=== PATIENT | female | born 1985 | race Caucasian/White ===

== ENCOUNTER → 2016-07-11 | Outpatient (CLI) | payer OTHER | END | disposition home or self-care (01) | LOC: C.PAPS 11:22 | PROVIDERS: ATTEND Obstetrics & Gynecology | DX: Z01.419 Encounter for gynecological examination (general) (routine) without abnormal findings (principal); O48.1 Prolonged pregnancy ==

== ENCOUNTER → 2016-07-23 | Outpatient (CLI) | payer OTHER ==
--- NOTE | 2016-07-23 14:09 | MAMMOGRAPHY REPORT ---
UNILATERAL RIGHT DIGITAL DIAGNOSTIC MAMMOGRAM TOMOSYNTHESIS WITH CAD AND TARGETED RIGHT ULTRASOUND: 07/23/2016 CLINICAL HISTORY: The patient reports intermittent pain in the right lateral breast since she began breast-feeding. She breast fed for approximately 7 months and quit breast-feeding approximately 1-1 /2 years ago. She denies any palpable lumps. TECHNIQUE: Breast tomosynthesis in addition to standard 2D mammography was performed. Current study was also evaluated with a Computer Aided Detection (CAD) system. Right CC and MLO 2-D and tomosynt hesis images were obtained. COMPARISON: No prior exams were available for comparison. BREAST COMPOSITION: There are scattered areas of fibroglandular density in the right breast. FINDINGS: A triangle marker fabian the site of pain in the right upper outer quadrant. There are no suspicious masses, calcifications, or areas of architectural distortion noted in the right breast m ammographically. Targeted ultrasound was performed of the area of pain pointed out by the patient, involving the righ t lateral breast. No suspicious masses or other suspicious sonographic abnormalities are evident. Incidentally noted in the right breast at 7:00, 3 cm from the nipple, is an anechoic circumscribed 3 x 2 x 3 mm mass, consistent with a benign simple cyst. IMPRESSION: ACR BI-RADS CATEGORY 2: BENIGN, TARGETED ULTRASOUND ACR BI-RADS CATEGORY 2: BENIGN No suspicious mammographic or sonographic abnormality at the site of right breast pain. There is no mammographic or targeted sonographic evidence of malignancy. Recommend clinical follow-up, and rec ommend routine bilateral screening mammograms starting at the age of 40 unless otherwise clinically indicated. The patient has been verbally notified of the results. Approximately 10% of breast cancers are not detected with mammography. A negative mammographic repor t should not delay biopsy if a clinically suggestive mass is present. Nimo Pereira M.D. /:07/23/2016 12:05:16 Clerk Guide: Wallace SCHNEIDER)(Julia), [facility] letter sent: Normal 1/2 BI-RADS Code: ACR BI-RADS Category 2: Benign Ultrasound BI-RADS: ACR BI-RADS Category 2: Benign
== END | disposition home or self-care (01) ==
LOC: C.MAMM 11:37
PROVIDERS: ATTEND Obstetrics & Gynecology
DX: N64.4 Mastodynia (principal)